=== PATIENT | male | born 1980 | race Caucasian/White ===

== ENCOUNTER 2019-06-17 12:38 | Emergency (ER) | payer BC, OTHER ==
[2019-06-17 12:47] VITALS: BP 126/86
--- NOTE | 2019-06-17 12:52 | UC ---
Skin Complaint HPI - HPI Summary HPI Summary: 30-year-old male presents with complaints of a red, swollen, tender lesion to the left side of his neck. States he first noticed couple days ago and thought it was just a pimple but over the past 2 days the surrounding tissue has become more red and swollen. States he has been outdoors recently and is not sure if he was perhaps bitten by an insect although unable to recall a bite/sting. Denies fever, chills, swelling of the lips, tongue, throat, difficulty breathing , or drainage. - History of Current Complaint Chief Complaint: UCSkin Stated Complaint: BUG BITE Hx Obtained From: Patient Pain Intensity: 3 - Allergy/Home Medications Allergies/Adverse Reactions: Allergies Allergy/AdvReac Type Severity Reaction Status Date / Time No Known Allergies Allergy Verified 06/17/19 12:47 PMH/Surg Hx/FS Hx/Imm Hx Previously Healthy: Yes - Denies significant PMH - Surgical History Surgical History: None - Family History Known Family History: Positive: Cardiac Disease, Hypertension - Social History Occupation: Employed Full-time Lives: With Family Alcohol Use: Occasionally Substance Use Type: None Smoking Status (MU): Never Smoked Tobacco Review of Systems All Other Systems Reviewed And Are Negative: Yes Constitutional: Negative: Fever, Chills Skin: Positive: Other - See HPI Eyes: Negative: Drainage, Eye Redness ENT: Negative: Sore Throat, Ear Ache, Nasal Discharge, Sinus Congestion, Sinus Pain/Tenderness, Other - Swelling of lips, tongue, or throat Respiratory: Negative: Shortness Of Breath Cardiovascular: Positive: Negative Gastrointestinal: Positive: Negative Genitourinary: Positive: Negative Musculoskeletal: Positive: Negative Neurological: Positive: Negative Is Patient Immunocompromised?: No Physical Exam - Summary Physical Exam Summary: GENERAL APPEARANCE: Well developed, well nourished, alert and cooperative, and appears to be in no acute distress. EYES: Conjunctiva clear. No drainage. EARS: External auditory canals and tympanic membranes clear, hearing grossly intact. NOSE: No nasal discharge. THROAT: No swelling of lips or tongue. Pharynx normal. No tonsilar inflammation , swelling, exudate, or lesions. Uvula midline. Airway patent. NECK: Neck supple, non-tender without lymphadenopathy. CARDIAC: Normal S1 and S2. No S3, S4 or murmurs. Rhythm is regular. There is no peripheral edema, cyanosis or pallor. Extremities are warm and well perfused. Capillary refill is less than 2 seconds. Peripheral pulses intact. LUNGS: Clear to auscultation without rales, rhonchi, wheezing or diminished breath sounds. ABDOMEN: Positive bowel sounds. Soft, nondistended, nontender. No guarding or rebound. No masses or hepatosplenomegally. MUSKULOSKELETAL: ROM intact to all extremities. No joint erythema or tenderness. Normal muscular development. Normal gait. SKIN: Skin normal color, texture and turgor. 3.5 cm area of erythema and induration with a central puctate area of crusting to the lateral left neck just inferior of the angle of the mandible. No fluctuance or drainage noted. Triage Information Reviewed: Yes Vital Signs: Initial Vital Signs Temp 98.3 F 06/17/19 12:44 Pulse 74 06/17/19 12:44 Resp 16 06/17/19 12:44 BP 126/86 06/17/19 12:44 Pulse Ox 100 06/17/19 12:44 Vital Signs Reviewed: Yes Course/Dx - Course Course Of Treatment: 30-year-old male presents with complaints of a red, swollen, tender lesion to the left side of his neck. States he first noticed couple days ago and thought it was just a pimple but over the past 2 days the surrounding tissue has become more red and swollen. States he has been outdoors recently and is not sure if he was perhaps bitten by an insect although unable to recall a bite/sting. Denies fever, chills, swelling of the lips, tongue, throat, difficulty breathing , or drainage. Afebrile. Vital signs stable. Patient had a 3.5 cm area of erythema and induration with a central puctate area of crusting to the lateral left neck just inferior of the angle of the mandible. No fluctuance or drainage noted. Remainder of exam was unremarkable. Discussed with the patient I suspect that he had a folliculitis that has progressed to a cellulitis and will treat him with an antibiotic for infection. He is to take Bactrim DS one tablet twice a day 7 days. He is to follow-up with his primary care provider in 3-5 days if symptoms are not improving. Anticipatory guidance and warning symptoms were reviewed with the patient. Verbalizes understanding and agrees with plan of care. - Differential Diagnoses - Skin Complaint Differential Diagnoses: Allergic Reaction, Cellulitis, Local Allergic Reaction - Diagnoses Provider Diagnosis: Folliculitis, Cellulitis of neck Discharge - Sign-Out/Discharge Documenting (check all that apply): Patient Departure All imaging exams completed and their final reports reviewed: No Studies - Discharge Plan Condition: Stable Disposition: HOME Prescriptions: Sulfamethox/Trimethoprim DS* [Bactrim DS 800/160 TAB*] 1 tab PO BID #14 tab Patient Education Materials: Cellulitis (ED) Referrals: Butch Fu MD [Primary Care Provider] - 3 Days Additional Instructions: The lesion on your neck appears to be an infected hair follicle that has caused an infection in the skin called cellulitis. We will treat you with an antibiotic for the infection. Take Bactrim DS 1 tablet twice daily for 7 days. Apply a hot moist compress to the affected area 4-6 times a day. Take acetaminophen (Tylenol) or ibuprofen (Advil, Motrin) according to directions as needed for any pain. Follow-up with your primary care provider in 3 days if symptoms are not improving. Seek immediate medical attention in the emergency room if you develop fever greater than 100.5 F, have rapid spreading of the redness, swelling of the neck , severe pain that is not managed with acetaminophen or ibuprofen, or any worsening of symptoms. - Billing Disposition and Condition Condition: STABLE Disposition: Home
== END 2019-06-17 13:05 | disposition home or self-care (01) ==
LOC: UCEAST 12:38
DX: L03.221 Cellulitis of neck (principal); L73.9 Follicular disorder, unspecified
CPT/HCPCS: 99212; G0463

== ENCOUNTER 2019-08-08 11:55 | Emergency (ER) | payer BC ==
[2019-08-08 12:23] VITALS: BP 130/82
--- NOTE | 2019-08-08 12:57 | UC ---
UC General HPI - HPI Summary HPI Summary: swelling left side of jaw began 3 days ago--I s painful to fully open mouth, teeth maligned, no trauma, no fevers, no rash, no illness exposures---no silimar episodes in the past no ear, dental or throat pain - History of Current Complaint Chief Complaint: UCSkin Stated Complaint: L SIDE JAW PAIN/SWELLING Time Seen by Provider: 08/08/19 12:34 Hx Obtained From: Patient Onset/Duration: Gradual Onset, Lasting Days - 3, Still Present Timing: Constant Pain Intensity: 8 Pain Location at: left jaw Associated Signs & Symptoms: Negative: Fever, Headache, Trauma - Allergy/Home Medications Allergies/Adverse Reactions: Allergies Allergy/AdvReac Type Severity Reaction Status Date / Time No Known Allergies Allergy Verified 08/08/19 13:49 Home Medications: Home Medications Acetaminophen TAB* [Tylenol TAB*] 975 mg PO Q4H PRN 08/08/19 [History Confirmed 08/08/19] Multivitamin [Multivitamins] 1 cap PO DAILY 08/08/19 [History Confirmed 08/08/19 ] PMH/Surg Hx/FS Hx/Imm Hx Previously Healthy: Yes - Surgical History Surgical History: None - Family History Known Family History: Positive: Cardiac Disease, Hypertension - Social History Occupation: Employed Full-time Lives: With Family Alcohol Use: Rare Substance Use Type: None Smoking Status (MU): Never Smoked Tobacco Review of Systems All Other Systems Reviewed And Are Negative: Yes Constitutional: Positive: Negative Skin: Positive: Other - swelling and pain left jaw/tmj area Eyes: Positive: Negative ENT: Positive: Negative Respiratory: Positive: Negative Cardiovascular: Positive: Negative Gastrointestinal: Positive: Negative Genitourinary: Positive: Negative Motor: Positive: Negative Neurovascular: Positive: Negative Musculoskeletal: Positive: Negative Neurological: Positive: Negative Psychological: Positive: Negative Is Patient Immunocompromised?: No Physical Exam Triage Information Reviewed: Yes Appearance: Well-Appearing, No Pain Distress, Well-Nourished Vital Signs: Initial Vital Signs Temp 99.2 F 08/08/19 12:21 Pulse 73 08/08/19 12:21 Resp 16 08/08/19 12:21 BP 130/82 08/08/19 12:21 Pulse Ox 99 08/08/19 12:21 Vital Signs Reviewed: Yes Eye Exam: Normal Eyes: Positive: Conjunctiva Clear ENT Exam: Normal ENT: Positive: Normal ENT inspection, Hearing grossly normal, Pharynx normal, TMs normal, Other - left TMJ painful. Negative: Nasal congestion, Tonsillar swelling, Tonsillar exudate, Trismus, Muffled voice, Hoarse voice, Dental tenderness, Sinus tenderness, Uvula midline Dental Exam: Other Dental: Positive: Other: - malalignment. Negative: Percussion Tenderness @, Gross Decay/Caries @, Dental Fracture @, Abscess @ Neck exam: Normal Neck: Positive: Supple, Nontender, No Lymphadenopathy Respiratory Exam: Normal Respiratory: Positive: Chest non-tender, Lungs clear, Normal breath sounds, No respiratory distress, No accessory muscle use Cardiovascular Exam: Normal Cardiovascular: Positive: RRR, No Murmur, Pulses Normal, Brisk Capillary Refill Musculoskeletal Exam: Other Musculoskeletal: Positive: Strength Intact, ROM Limited @ - jaw -limited d/t pain, Edema @ - left side of jaw Neurological Exam: Normal Neurological: Positive: Alert, Muscle Tone Normal Psychological Exam: Normal Skin Exam: Normal Course/Dx - Course Course Of Treatment: reviewed case with Dr. Iqbal-plan will be to send patient to ED for further imaging/assessment-- - Diagnoses Provider Diagnosis: Lymphadenopathy Discharge ED - Sign-Out/Discharge Documenting (check all that apply): Patient Departure All imaging exams completed and their final reports reviewed: No Studies - Discharge Plan Condition: Stable Disposition: HOME-RECOMMEND TO ED Patient Education Materials: Lymphedema (ED) Referrals: Butch Fu MD [Primary Care Provider] - Additional Instructions: Please go directly to the emergency department for further assessment and treatment - Billing Disposition and Condition Condition: STABLE Disposition: Home-Recommend to ED - Attestation Statements Provider Attestation: I was available for consult. This patient was seen by the MARY. The patient was not presented to, seen by, or examined by me. Last Iqbal MD
== END 2019-08-08 13:02 | disposition home health service (06) ==
LOC: UCEAST 11:55
DX: R59.0 Localized enlarged lymph nodes (principal)
CPT/HCPCS: 99212; G0463

== ENCOUNTER 2019-08-08 13:38 | Emergency (ER) | payer BC ==
--- NOTE | 2019-08-08 14:47 | ED ---
Throat Pain/Nasal Congestion - HPI Summary HPI Summary: Patient is a 39-year-old male who presents emergency department for swelling to the left side of his face 2-3 days. Patient denies any injuries or falls. Patient notes maturity pain is located in front of his left ear. Patient states that swelling is causing his jaw to be out of line causing difficulty eating. Patient denies fever, chills, ear pain, sore throat, dental pain, cough , vomiting. Symptoms are moderate in severity. Eating makes symptoms worse. Nothing makes symptoms better. - History of Current Complaint Chief Complaint: EDFacialInjury Time Seen by Provider: 08/08/19 14:32 Hx Obtained From: Patient - Allergies/Home Medications Allergies/Adverse Reactions: Allergies Allergy/AdvReac Type Severity Reaction Status Date / Time No Known Allergies Allergy Verified 08/08/19 13:49 PMH/Surg Hx/FS Hx/Imm Hx Previously Healthy: Yes Endocrine/Hematology History: Denies: Hx Diabetes Cardiovascular History: Denies: Hx Hypertension, Hx Pacemaker/ICD History: Denies: Hx Renal Disease Sensory History: Denies: Hx Hearing Aid Psychiatric History: Denies: Hx Panic Disorder - Immunization History Immunizations Up to Date: Yes Infectious Disease History: No Infectious Disease History: Denies: Traveled Outside the [place] in Last 30 Days - Family History Known Family History: Positive: Cardiac Disease, Hypertension, Non-Contributory - Social History Occupation: Employed Full-time Lives: With Family Alcohol Use: Rare Substance Use Type: Reports: None Smoking Status (MU): Never Smoked Tobacco Review of Systems Constitutional: Negative Negative: Fever, Chills Eyes: Negative ENT: Negative Cardiovascular: Negative Respiratory: Negative Gastrointestinal: Negative Skin: Negative Neurological: Negative All Other Systems Reviewed And Are Negative: Yes Physical Exam Triage Information Reviewed: Yes Vital Signs On Initial Exam: Initial Vitals Temp Pulse Resp BP Pulse Ox 97.8 F 86 16 131/94 97 08/08/19 13:44 08/08/19 13:44 08/08/19 13:44 08/08/19 13:44 08/08/19 13:44 Vital Signs Reviewed: Yes Appearance: Positive: Well-Appearing - Pt. sitting on bed in NAD. Pleasant. Skin: Positive: Warm, Dry Head/Face: Positive: Other - Marked left sided facial edema with majority of edema located to the pre-auricular region with tenderness. Maxilla seems to be pushed to the right causing malalignment of teeth. Eyes: Positive: Normal, EOMI ENT: Positive: Pharynx normal, TMs normal. Negative: Tonsillar swelling, Tonsillar exudate Dental: Negative: Gross Decay/Caries @ Neck: Positive: Supple Respiratory/Lung Sounds: Positive: Clear to Auscultation, Breath Sounds Present Cardiovascular: Positive: Normal, RRR Neurological: Positive: Normal, CN Intact II-III Psychiatric: Positive: Affect/Mood Appropriate Diagnostics - Vital Signs Vital Signs Temp Pulse Resp BP Pulse Ox 08/08/19 13:44 97.8 F 86 16 131/94 97 - Laboratory Result Diagrams: 08/08/19 15:02 08/08/19 15:02 Lab Statement: Any lab studies that have been ordered have been reviewed, and results considered in the medical decision making process. EENT Course/Dx - Course Course Of Treatment: Pt. presenting with left sided facial edema. No signs of airway compromise. Will obtain labs and ct with contrast for further evaluation. Labs are unremarkable other than mimimal elevation of CRP. CT face per radiology: IMPRESSION: INFLAMMATORY CHANGE OF THE LEFT FACE AND UPPER NECK CONSISTENT WITH CELLULITIS, WITHOUT. LOCULATED FLUID COLLECTION TO SUGGEST ABSCESS. Case disucces with Dr. Maqruez who examined pt. as well. Will try on an outpt. course of augmentin. Pt. was given an IV dose of zosyn in ED. Advised warm compresses and NSAIDs. Pt. to f.u with PCP in 2 days for recheck. To return to ER over weekend for increased swelling, fever, difficulty swallowing/breathing or if concerned. Pt. understands and agrees with plan. - Differential Diagnoses Differential Diagnoses: Dental Abscess, Jordin's Angina, Mandibular/Maxillary Trauma, Periodontic Abscess - Diagnoses Provider Diagnoses: Facial cellulitis Discharge ED - Sign-Out/Discharge Documenting (check all that apply): Patient Departure Patient Received Moderate/Deep Sedation with Procedure: No - Discharge Plan Condition: Good Disposition: HOME Prescriptions: Amoxicillin/Clavulanate TAB* [Augmentin TAB 875*] 875 mg PO BID #20 tab Patient Education Materials: Cellulitis (ED) Referrals: Butch Fu MD [Primary Care Provider] - Additional Instructions: Schedule a follow up appointment with your PCP within 2 days Take antibiotics as directed Apply warm compresses to face Ibuprofen as directed for pain Return to ER for fever, increased swelling, pain, or if concerned - Billing Disposition and Condition Condition: GOOD Disposition: Home
[2019-08-08 15:16] LABS: ABS Eosinophils 0.1 10^3/ul (0-0.6); ABS Lymphocytes 1.1 10^3/ul (1.0-4.8); ABS Monocytes 0.6 10^3/ul (0-0.8); ABS Neutrophils 4.1 10^3/ul (1.5-7.7); Eosinophil % 1.6 %; Hematocrit 44 % (42-52); Hemoglobin 15.5 g/dL (14.0-18.0); Lymphocyte % 18.6 %; Mean Corpuscular HGB Conc 35 g/dL (31-36); Mean Corpuscular Hemoglobin 32 pg (27-31); Mean Corpuscular Volume 91 fL (80-94); Mean Platelet Volume 7.7 fL (7.4-10.4); Platelet Count 170 10^3/uL (150-450); Red Blood Count 4.89 10^6 /uL (4.18-5.48); Red Cell Distribution Width 14 % (10-15); White Blood Count 5.9 10^3/uL (3.5-10.8)
[2019-08-08] MEDS ORDERED: NS 0.9% 1000 ML** 1,000 ML IV ONE (15:23)
[2019-08-08 15:57] LABS: Albumin 4.3 g/dL (3.2-5.2); Albumin/Globulin Ratio 1.6 (1-3); C Reactive Protein 25.68 mg/L (<8.01); Calcium 9.4 mg/dL (8.6-10.3); EGFR African American 108.1 (>60); EGFR Non-African American 89.3 (>60); Globulin 2.7 g/dL (2-4); Potassium 3.8 mmol/L (3.5-5.0); Total Bilirubin 0.7 mg/dL (0.2-1.0)
[2019-08-08] MEDS ORDERED: Iohexol 300* (CONTRAST) 10 ML SDV IV ONE (16:02)
[2019-08-08] MEDS ORDERED: Piperacillin/Tazobac ADVAN(*) 3.375 GM in NS 0.9% 100 ML* 100 ML IVPB ONE (16:58)
[2019-08-08 18:15] VITALS: BP 127/79
== END 2019-08-08 18:21 | disposition home or self-care (01) ==
LOC: ED 13:38
DX: L03.211 Cellulitis of face (principal); R60.9 Edema, unspecified
CPT/HCPCS: 36415; 70487; 80053; 85025; 86140; 96361; 96365; 99282; J2543; Q9967